=== PATIENT | female | born 1930 | race Asian ===

== ENCOUNTER 2017-06-28 18:50 | Emergency (ER) | payer OTHER ==
[~2017-06-28] VITALS: Ht 172.7 cm; Wt 68.0 kg
[2017-06-28 19:00] VITALS: TEMP 98
[2017-06-28 20:12] LABS: PLATELET COUNT 170 K/uL (152-353)
[2017-06-28 20:21] LABS: POTASSIUM 3.8 mmol/L (3.6-5.2); SODIUM 138 mmol/L (136-145)
[2017-06-28 20:37] LABS: PARTIAL THROMBOPLASTIN TIME 24.4 SECONDS (24.5-33.6)
[2017-06-28 21:53] VITALS: BP 179/77
== END 2017-06-28 22:32 | disposition home or self-care (01) ==
LOC: ED 18:50
DX: M79.601 Pain in right arm (principal)
CPT/HCPCS: 80053; 82550; 83880; 84484; 85027; 85610; 85730; 93005; 99284